=== PATIENT | male | born 1980 | race Caucasian/White ===

== ENCOUNTER 2018-04-13 16:02 | Emergency (ER) | payer MEDICAID ==
[2018-04-13 16:28] VITALS: BP 148/99
[2018-04-13] MEDS ORDERED: Ibuprofen 600 MG Tab PO ONE (16:40)
--- NOTE | 2018-04-13 16:46 | EDM.PDOC ---
<Alissa Miller N - Last Filed: 04/13/18 16:41> ED HPI GENERAL MEDICAL PROBLEM - General Chief Complaint: Respiratory Problem Stated Complaint: FLU SYMPTOMS, BODY ACHES, FEVER/CHILLS Time Seen by Provider: 04/13/18 16:24 Source of Information: Reports: Patient History Limitations: Reports: No Limitations - History of Present Illness INITIAL COMMENTS - FREE TEXT/NARRATIVE: Jaleel is a 37-year-old male who presents to the ER with complaints of fevers, chills, cough, and body aches for the past 3.5 days. States he woke up with the symptoms, with no known exposures to sick individuals. reports associated pleuritic chest pain, weakness, tiredness, malaise, decreased appetite, sore throat, rhinitis, and nausea. No change in bowel habits, sputum production, or vomiting. He has been taking Thermaflu with some relief. States he has not been eating or drinking much. Onset Date: 04/10/18 - Related Data Allergies Allergy/AdvReac Type Severity Reaction Status Date / Time No Known Allergies Allergy Verified 02/03/18 21:58 Home Meds: Home Meds QUEtiapine Fumarate [Quetiapine Fumarate] 300 mg PO BEDTIME 11/06/15 [History] QUEtiapine Fumarate [Seroquel] 50 mg PO BEDTIME 02/03/18 [History] Past Medical History - Past Health History Medical/Surgical History: Denies Medical/Surgical History Psychiatric History: Reports: PTSD Social & Family History - Tobacco Use Smoking Status *Q: Heavy Tobacco Smoker Years of Tobacco use: 20 Packs/Tins Daily: 1 - Caffeine Use Caffeine Use: Reports: Coffee, Energy Drinks, Soda - Recreational Drug Use Recreational Drug Use: No ED ROS GENERAL - Review of Systems Review Of Systems: See Below Constitutional: Reports: Fever, Chills, Malaise, Weakness, Fatigue, Decreased Appetite HEENT: Reports: No Symptoms, Rhinitis, Throat Pain. Denies: Ear Discharge, Ear Pain, Eye Discharge, Eye Pain, Hearing Loss, Nose Pain Respiratory: Reports: Shortness of Breath, Pleuritic Chest Pain, Cough. Denies : Sputum Cardiovascular: Denies: Chest Pain, Palpitations Endocrine: Reports: Fatigue GI/Abdominal: Reports: Decreased Appetite, Nausea. Denies: Abdominal Pain, Black Stool, Bloody Stool, Constipation, Diarrhea, Vomiting : Reports: No Symptoms Musculoskeletal: Reports: Muscle Pain. Denies: Joint Swelling Skin: Reports: No Symptoms Neurological: Reports: Headache, Weakness Psychiatric: Reports: No Symptoms Hematologic/Lymphatic: Reports: No Symptoms Immunologic: Reports: No Symptoms ED EXAM, GENERAL - Physical Exam Exam: See Below Exam Limited By: No Limitations General Appearance: Alert, WD/WN, No Apparent Distress Eye Exam: Bilateral Eye: EOMI, PERRL Ears: Normal External Exam, Normal Canal, Hearing Grossly Normal, Normal TMs Ear Exam: Bilateral Ear: Auricle Normal, Canal Normal, TM normal Nose: Normal Inspection, Normal Mucosa, No Blood, Clear Rhinorrhea Throat/Mouth: Normal Inspection, Normal Lips, Normal Teeth, Normal Gums, Normal Oropharynx, Normal Voice, No Airway Compromise, Other (Tonsillar erythema) Head: Atraumatic, Normocephalic Neck: Normal Inspection, Supple, Non-Tender, Full Range of Motion. No: Lymphadenopathy (R), Lymphadenopathy (L) Respiratory/Chest: No Respiratory Distress, Lungs Clear, Normal Breath Sounds, No Accessory Muscle Use Cardiovascular: Normal Peripheral Pulses, Regular Rate, Rhythm, No Edema, No Gallop, No JVD, No Murmur, No Rub Peripheral Pulses: 2+: Radial (L), Radial (R) GI/Abdominal: Normal Bowel Sounds, Soft, Non-Tender, No Organomegaly, No Distention, No Mass Neurological: Alert, Oriented, CN II-XII Intact, Normal Cognition, Normal Gait, Normal Reflexes, No Motor/Sensory Deficits Psychiatric: Normal Affect, Normal Mood Skin Exam: Warm, Dry, Intact, Normal Color, No Rash Lymphatic: No Adenopathy (Anterior and posterior cervical chains) Course - Vital Signs Last Recorded V/S: Last Vital Signs Temp 38.6 C H 04/13/18 16:15 Pulse 107 H 04/13/18 16:15 Resp 16 04/13/18 16:15 BP 148/99 H 04/13/18 16:15 Pulse Ox 98 04/13/18 16:15 - Orders/Labs/Meds Orders: Active Orders 24 hr Category Date Time Status CBC W/O DIFF,HEMOGRAM [HEME] Stat Lab 04/13/18 16:40 Ordered Meds: Medications Discontinued Medications Generic Name Dose Route Start Last Admin Trade Name Freq PRN Reason Stop Dose Admin Benzonatate 200 mg 04/13/18 16:49 04/13/18 16:52 Tessalon Perles PO 04/13/18 16:50 200 mg ONETIME ONE Administration Ibuprofen 600 mg 04/13/18 16:40 04/13/18 16:49 Motrin PO 04/13/18 16:41 600 mg ONETIME ONE Administration Departure - Departure Disposition: Home, Self-Care 01 Clinical Impression: Influenza A - Discharge Information Referrals: Nicole Humphries MD [Primary Care Provider] - Forms: ED Department Discharge Care Plan Goals: cool mist humidfier, push fluids, tylenol 650 alternating with motrin 600mg to control fever, robitussin ac 1-2 tsp q6h as needed for cough, <Etta Zhao - Last Filed: 04/13/18 16:57> Course - Re-Assessments/Exams Free Text/Narrative Re-Assessment/Exam: 04/13/18 16:55 pt has a positive influ A. He has a fever he was given motrin 600mg while here. Departure - Departure Time of Disposition: 16:56 Condition: Fair
[2018-04-13] MEDS ORDERED: Benzonatate 100 MG Cap PO ONE (16:49)
== END 2018-04-13 17:09 | disposition home or self-care (01) ==
LOC: JP.ED 16:02
DX: J10.1 Influenza due to other identified influenza virus with other respiratory manifestations (principal); F17.210 Nicotine dependence, cigarettes, uncomplicated
CPT/HCPCS: 36415; 85027; 87804; 99284; A9270